=== PATIENT | female | born 2005 | race Two or more races ===

== ENCOUNTER 2024-11-25 18:38 | Inpatient (IN) | payer OTHER ==
[~2024-11-25] VITALS: Ht 170.2 cm; Wt 65.8 kg
[2024-11-25] MEDS ORDERED: FAMOTIDINE/PF 20 MG/2 ML VIAL ONE (19:02)
[2024-11-25] MEDS ORDERED: LACTOBACILLUS ACIDOPHILUS 1 CAP CAP PO ONE (19:02)
[2024-11-25] MEDS ORDERED: 0.9 % SODIUM CHLORIDE 1,000 ML IV STA (19:21)
[2024-11-25] MEDS ORDERED: FAMOTIDINE/PF 20 MG/2 ML VIAL IV STA (19:21)
[2024-11-25 19:35] LABS: BASO % 0.2 % (0.1-1.2); EOS # 0.09 (0.04-0.54); EOS % 0.9 % (0.7-7.0); HEMATOCRIT 40.1 % (34.1-44.9); HEMOGLOBIN 13.9 g/dL (11.2-15.7); LYMPH # 0.36 (1.18-3.74); LYMPH % 3.7 % (19.3-53.1); MEAN CORPUSCULAR HEMOGLOBIN 29.8 pg (25.6-32.2); MONO # 0.35 (0.24-0.82); MONO % 3.6 % (4.7-12.5); NEUT # 8.98 (1.56-6.13); NEUT % 91.4 % (34.0-71.1); PLATELET COUNT 202 K/uL (163-369); RED BLOOD COUNT 4.67 M/uL (3.93-5.22); RED CELL DISTRIBUTION WIDTH 12.2 % (11.6-14.4)
[2024-11-25 20:33] LABS: URINE APPEARANCE Clear; URINE BILIRRUBIN Negative (NEGATIVE); URINE BLOOD Negative; URINE COLOR Yellow; URINE KETONE Negative (NEGATIVE); URINE LEUKOCYTE Negative; URINE NITRATE Negative; URINE PROTEIN Negative (NEGATIVE); URINE UROBILINOGEN 0.2 E.U./dl
[2024-11-25 20:36] LABS: URINE BACTERIA 1911.8 uL (0.0-1933); URINE EPITHELIAL CELLS 45.7 uL (0.0-38.8); URINE RBC 3.9 uL (0.0-20.8); URINE WBC 37.6 uL (0.0-23.2)
[2024-11-25 20:39] LABS: URINE CAST 1.03 uL (0.0-1.40); URINE GLUCOSE 500 MG/DL (NEGATIVE)
[2024-11-25 20:43] LABS: ob POSITIVE (NEGATIVE)
[2024-11-25 20:45] LABS: ALBUMIN 3.4 gm/dL (3.4-5.0); BILIRUBIN TOTAL 1.02 mg/dL (0.3-1.2); CALCIUM 8.5 mg/dL (8.5-10.1); CREATININE SERUM 0.58 mg/dL (0.55-1.02); GFR 132.54; GLOBULINA 3.5 G/DL (2.4-3.5); POTASSIUM 3.62 mEq/L (3.5-5.1); TOTAL PROTEIN 6.9 gm/dL (6.4-8.2)
[2024-11-25 20:50] LABS: FECAL LEUKOCYTES POSITIVE (NEGATIVE)
[2024-11-25 21:56] VITALS: BP 129/86
[2024-11-25 23:23] LABS: COVID-19 AG NEGATIVE (NEGATIVE)
[2024-11-26 00:57] VITALS: BP 102/65; O2SAT 100
[2024-11-26] MEDS ORDERED: LACTOBACILLUS ACIDOPHILUS 1 CAP CAP PO SCH (05:00)
[2024-11-26 08:00] VITALS: BP 110/72; O2SAT 98
[2024-11-26] MEDS ORDERED: FAMOtidine 20 MG TABLET PO STA (08:15)
[2024-11-26] MEDS ORDERED: 0.9 % SODIUM CHLORIDE 1,000 ML IV SCH (09:00)
[2024-11-26 16:00] VITALS: BP 110/75; O2SAT 99
[2024-11-27 00:32] VITALS: BP 97/61; O2SAT 99
[2024-11-27 07:47] LABS: BASO % 0.5 % (0.1-1.2); EOS # 0.17 (0.04-0.54); EOS % 4.1 % (0.7-7.0); HEMATOCRIT 37.8 % (34.1-44.9); HEMOGLOBIN 12.7 g/dL (11.2-15.7); LYMPH # 1.04 (1.18-3.74); LYMPH % 25.1 % (19.3-53.1); MEAN CORPUSCULAR HEMOGLOBIN 29.1 pg (25.6-32.2); MONO # 0.51 (0.24-0.82); NEUT # 2.39 (1.56-6.13); NEUT % 57.8 % (34.0-71.1); PLATELET COUNT 195 K/uL (163-369); RED BLOOD COUNT 4.37 M/uL (3.93-5.22); RED CELL DISTRIBUTION WIDTH 12.4 % (11.6-14.4)
[2024-11-27 07:52] LABS: MONO % 12.3 % (4.7-12.5)
[2024-11-27 08:16] LABS: BILIRUBIN TOTAL 0.37 mg/dL (0.3-1.2); CALCIUM 8.3 mg/dL (8.5-10.1); CREATININE SERUM 0.45 mg/dL (0.55-1.02); GFR 177.63; GLOBULINA 3.1 G/DL (2.4-3.5); POTASSIUM 3.88 mEq/L (3.5-5.1); TOTAL PROTEIN 6.1 gm/dL (6.4-8.2)
[2024-11-27 09:31] VITALS: BP 102/65; O2SAT 100
[2024-11-27 09:48] LABS: PH,URINE 7.5 (5.0-8.0); URINE APPEARANCE Turbid; URINE BILIRRUBIN Negative (NEGATIVE); URINE BLOOD Small; URINE COLOR Yellow; URINE GLUCOSE Negative (NEGATIVE); URINE KETONE Negative (NEGATIVE); URINE LEUKOCYTE Small; URINE NITRATE Negative; URINE PROTEIN Negative (NEGATIVE); URINE UROBILINOGEN 0.2 E.U./dl
[2024-11-27 09:51] LABS: URINE RBC 16.6 uL (0.0-20.8); URINE WBC 263.6 uL (0.0-23.2)
[2024-11-27 10:39] LABS: URINE BACTERIA > 9821.5 uL (0.0-1933); URINE CAST 0.73 uL (0.0-1.40); URINE EPITHELIAL CELLS > 201.7 uL (0.0-38.8)
== END 2024-11-27 11:41 | disposition home or self-care (01) | DRG 392 ==
LOC: ER 18:38 → EMR PED 18:38 → PED 21:17
PROVIDERS: Emergency Medicine Pediatric Emergency Medicine; General Practice; ADMIT Emergency Medicine; ATTEND Emergency Medicine
DX: K52.9 Noninfective gastroenteritis and colitis, unspecified (principal)

== ENCOUNTER 2025-02-03 14:42 | Emergency (ER) | payer OTHER ==
[~2025-02-03] VITALS: Ht 154.9 cm; Wt 65.8 kg
[2025-02-03 16:11] LABS: BASO % 0.5 % (0.1-1.2); EOS # 0.09 (0.04-0.54); EOS % 0.9 % (0.7-7.0); LYMPH # 0.86 (1.18-3.74); LYMPH % 8.1 % (19.3-53.1); MEAN PLATELET VOLUME 10.20 fl (9.4-12.4); MONO # 0.64 (0.24-0.82); MONO % 6.1 % (4.7-12.5); NEUT # 8.88 (1.56-6.13); NEUT % 84.0 % (34.0-71.1); RED CELL DISTRIBUTION WIDTH 11.8 % (11.6-14.4)
[2025-02-03 17:01] LABS: COVID-19 AG POSITIVE (NEGATIVE)
== END 2025-02-03 17:40 | disposition home or self-care (01) ==
LOC: EMR PED 14:52 → ER 14:52 → EMR PED 17:40
PROVIDERS: Emergency Medicine Pediatric Emergency Medicine
DX: U07.1 COVID-19 (principal)